=== PATIENT | male | born 1940 | race Caucasian/White ===

== ENCOUNTER 2018-10-13 16:41 | Inpatient (IN) | payer MEDICARE ==
[~2018-10-13] VITALS: Ht 180.3 cm; Wt 125.9 kg
[2018-10-13] MEDS ORDERED: ACETAMINOPHEN500 M1 PO (16:52)
[2018-10-13] MEDS ORDERED: LOW DOSE ASPIRI81 M1 PO (16:53)
[2018-10-13] MEDS ORDERED: LIPITOR80 MG PO (16:53)
[2018-10-13] MEDS ORDERED: SYMBICORT 16010.2 GM INH (16:54)
[2018-10-13] MEDS ORDERED: OPTIVE SENSITI1 EACH EACH EYE (16:54)
[2018-10-13] MEDS ORDERED: CALCIUM 500 +1 EAC3 PO (16:54)
[2018-10-13] MEDS ORDERED: DILTIAZEM 24HR120 M3 PO (16:55)
[2018-10-13] MEDS ORDERED: VITAMIN B-121000 MCG PO (16:55)
[2018-10-13] MEDS ORDERED: FUROSEMIDE20 MG PO (16:55)
[2018-10-13] MEDS ORDERED: LIDODERM 5 %1 PATCH TRANSDERM (16:56)
[2018-10-13] MEDS ORDERED: CLARITIN 10 MG10 MG PO (16:56)
[2018-10-13] MEDS ORDERED: ZESTRIL20 MG PO (16:56)
[2018-10-13] MEDS ORDERED: METHADONE5 MG PO (16:57)
[2018-10-13] MEDS ORDERED: ZANTAC300 MG PO (16:57)
[2018-10-13] MEDS ORDERED: GLUCOPHAGE1000 MG PO (16:57)
[2018-10-13] MEDS ORDERED: FLOMAX0.4 MG PO (16:58)
[2018-10-13] MEDS ORDERED: XARELTO20 MG PO (16:58)
[2018-10-13] MEDS ORDERED: CARAFATE1 G PO (16:58)
--- NOTE | 2018-10-13 17:14 | NUR ---
PT OUT OF THE ED AT THIS TIME, TRANSPORTED VIA STRETCHER WITH ED RNX2 FOR ORDERED TESTS.
--- NOTE | 2018-10-13 17:22 | NUR ---
UPON ARRIVED TO THE ED VIA EMS WITHOUT IV OR C-COLLAR IN PLACE. IV STARTED AND C-COLLAR APPLIED.
--- NOTE | 2018-10-13 17:24 | NUR ---
UPON ARRIVAL, SALINE SOAKED GAUZE APPLIED TO SKIN TEAR ON THE RUE. PRESSURE DRESSING APPLIED WITH OVIDIO WRAP OVER SALINE SOAKED GAUZE TO HELP CONTROL BLEEDING.
[2018-10-13 18:29] LABS: BASOPHILS 0.3 % (0-2); EOSINOPHILS 4.6 % (0-7); HEMATOCRIT 36.7 % (42.0-54.0); HEMOGLOBIN 11.9 g/dL (13.5-17.5); IMMATURE GRANULOCYTES 0.9 % (0-5); LYMPHOCYTES 10.6 % (15-50); MCH 27.2 pg (26.0-34.0); MCHC 32.4 g/dL (31.0-37.0); MEAN PLATELET VOLUME 9.2 fL (7.4-10.4); MONOCYTES 9.2 % (2-11); NEUTROPHILS 74.4 % (40-80); PLATELET COUNT 165 10x3/uL (130-400); RBC 4.37 10x6/uL (4.20-6.10); RDW 17.1 % (11.5-14.5); WBC 11.3 10x3/uL (4.8-10.8)
[2018-10-13 18:38] LABS: APTT 24.9 SECONDS (22.8-39.4); INR 1.22 (0.85-1.17); PROTIME 14.8 SECONDS (11.6-15.0)
[2018-10-13 18:45] LABS: ALBUMIN 2.9 g/dL (3.4-5.0); ANION GAP 10.5 mmol/L (8-16); BILIRUBIN - TOTAL 0.33 mg/dL (0.2-1.3); CALCIUM 9.2 mg/dL (8.5-10.1); CARBON DIOXIDE 28.7 mmol/L (21.0-32.0); CREATININE - SERUM 1.3 mg/dL (0.6-1.3); POTASSIUM - SERUM 4.2 mmol/L (3.5-5.1); PROTEIN - SERUM 6.6 g/dL (6.4-8.2)
--- NOTE | 2018-10-13 19:17 | NUR ---
VALERIY BANEGAS TOOK OVER PT AND REPORT CALLED TO VALERIY LAU ON FLOOR
--- NOTE | 2018-10-13 19:30 | MORECARE ---
CASE MANAGEMENT DISCHARGE SUMMARY PATIENT: FRANCES MISTRY UNIT: [id number] ADM DATE: 10/13/18 AGE: 78 : 39 SEX: M ROOM/BED: D.2118 AUTHOR: SHAMIR MCKEON PHYSICIAN: REFERRING PHYSICIAN: STEPHIE DELAROSA MD DATE OF SERVICE: 10/13/18 Discharge Plan Patient Name: FRANCES MISTRY Facility: [facility]:[place] : 1940 Planned Disposition: Home Anticipated Discharge Date: 10/16/18 Discharge Date: Expected LOS: 3 Initial Reviewer: [email or web address] Initial Review Date: 10/13/2018 Generated: 10/13/18 8:30 pm Comments DCP- Discharge Planning Updated by [email or web address]: Rachel Shah on 10/13/18 6:[address] Patient with VA benefits. Dr. Tubbs does not feel the patient is stable for transfer at this time. Documentation of this is in the ER report. CM contacted the [place] expeditor, , notified her of patient's admission to [facility] and medical instability. Rachel Shah RN, [facility] DCPIA - Discharge Planning Initial Assessment Updated by [email or web address]: Rachel Shah on 10/13/18 7:29 pm * Is the patient Alert and Oriented? Yes * PCP Dr. Stephens at the [place] * Pharmacy [facility] * Preadmission Environment Home Alone * ADLs Independent * Equipment Nebulizer Oxygen * Other Equipment Wears o2 most of the time. Has portability. May take off during the day some. [place] Is DME provider. * Verbal permission to speak to the caregivers and representatives has been obtained from the patient. Yes * Community resources currently utilized None * Additional services required to return to the preadmission environment? No * Can the patient safely return to the preadmission environment? Yes * Has this patient been hospitalized within the prior 30 days at any hospital? No Patient Name: FRANCES MISTRY Page 38575 at 1930 All edits/amendments must be made on the electronic document DICTATION DATE: 10/13/181929 WET PAN MIXER: THEODORE 10/13/181929 RPT#: [id number] DC DATE: STATUS: ADM IN [facility] [address] [place] [address] END OF REPORT
[2018-10-13 19:33] LABS: CKMB 1.5 U/L (0.0-3.6); CREATINE KINASE 50 UL (21-232)
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
--- NOTE | 2018-10-13 19:37 | NUR ---
TRAUMA BAND NUMBER [id number]
--- NOTE | 2018-10-13 22:36 | NUR ---
WHEN PATIENT ARRIVED TO FLOOR FROM ER, PATIENT WAS PLACED ON TELEMETRY. PATIENT RUNNING NORMAL SINUS WITH PAC.
[2018-10-14] VITALS (7 sets, daily range): BP systolic 101–132; BP diastolic 42–73; Ht 180.3 cm; Wt 125.9 kg
[2018-10-14 01:27] LABS: APPEARANCE CLEAR (CLEAR); BILIRUBIN NEGATIVE (NEGATIVE); COLOR YELLOW (YELLOW); GLUCOSE NEGATIVE (NEGATIVE); KETONE NEGATIVE (NEGATIVE); NITRITE NEGATIVE (NEGATIVE); PROTEIN NEGATIVE (NEGATIVE); SPECIFIC GRAVITY 1.015 (1.005-1.020); UROBILINOGEN NORMAL (NORMAL)
[2018-10-14 02:08] LABS: CKMB 1.9 U/L (0.0-3.6); CREATINE KINASE 69 UL (21-232)
[2018-10-14 02:09] LABS: TROPONIN-I 0.257 ng/mL (0.000-0.060)
[2018-10-14 08:27] LABS: BASOPHILS 0.5 % (0-2); EOSINOPHILS 6.4 % (0-7); HEMATOCRIT 34.6 % (42.0-54.0); HEMOGLOBIN 11.2 g/dL (13.5-17.5); IMMATURE GRANULOCYTES 0.7 % (0-5); LYMPHOCYTES 29.4 % (15-50); MCH 27.2 pg (26.0-34.0); MCHC 32.4 g/dL (31.0-37.0); PLATELET COUNT 151 10x3/uL (130-400); RBC 4.12 10x6/uL (4.20-6.10); RDW 17.6 % (11.5-14.5)
[2018-10-14 08:31] LABS: WBC 7.3 10x3/uL (4.8-10.8)
[2018-10-14 08:45] LABS: ALBUMIN 2.8 g/dL (3.4-5.0); ALKALINE PHOSPHATASE 90 U/L (46-116); ALT (SGPT) 30 U/L (10-68); BILIRUBIN - TOTAL 0.48 mg/dL (0.2-1.3); CALC OSMOLALITY 278 mosm/kg (275-300); CALCIUM 8.5 mg/dL (8.5-10.1); CARBON DIOXIDE 27.4 mmol/L (21.0-32.0); CHLORIDE - SERUM 103 mmol/L (98-107); CKMB 1.4 U/L (0.0-3.6); CREATINE KINASE 67 UL (21-232); CREATININE - SERUM 1.2 mg/dL (0.6-1.3); GLUCOSE 134 mg/dL (74-106); MAGNESIUM - SERUM 1.7 mg/dL (1.8-2.4); PHOSPHOROUS 3.5 mg/dL (2.5-4.9); POTASSIUM - SERUM 4.6 mmol/L (3.5-5.1); PRO BNP 327 pg/mL (0-450); PROTEIN - SERUM 6.1 g/dL (6.4-8.2); SODIUM 138 mmol/L (136-145); UREA NITROGEN 16 mg/dL (7-18); eGFR NON AFRICAN AMERICAN 62 mL/min (90-120)
[2018-10-14 08:46] LABS: TROPONIN-I 0.194 ng/mL (0.000-0.060)
--- NOTE | 2018-10-14 10:07 | NUR ---
BOLLUS GIVEN FOR BT PAIN. WILL CONT. TO MONITOR.
[2018-10-14 13:15] LABS: % SATURATION 14 % (15-55); IRON 36 ug/dl (35-150); TOTAL IRON BIND CAPACITY 241 ug/dl (260-445); UNSAT IRON BIND CAPACITY 205 ug/dl (150-375)
--- NOTE | 2018-10-14 13:23 | NUR ---
UP OOB TO AMBULATE WITH PT ASSIST.
[2018-10-14 13:54] LABS: T4 THYROXIN - FREE 1.14 ng/dL (0.76-1.46); THYROID STIMULATING HORMONE 1.05 uIU/mL (0.36-3.74)
--- NOTE | 2018-10-14 19:00 | NUR ---
BEDSIDE REPORT RECEIVED. PATIENT IS ALERT AND ORIENTED, RESPIRATIONS ARE EVEN AND UNLABORED. NO S/S OF DISTRESS. NO C/O PAIN. CALL LIGHT WITHIN REACH. WILL CPOC.
--- NOTE | 2018-10-14 19:00 | NUR ---
RECEIVING PATIENT CARE. PATIENT IS ALERT AND ORIENTED. RESTING COMFORTABLY IN BED. PATIENT IS ALERT AND ORIENTED. RESTING COMFORTABLY IN BED. NO S/S OF DISTRESS. NO C/O PAIN. CALL LIGHT WITHIN REACH. WILL CPOC.
[2018-10-15] VITALS: BP 106/44
[2018-10-15 03:13] LABS: UDS - AMPHET NEGATIVE QUAL (NEGATIVE); UDS - BARB NEGATIVE QUAL (NEGATIVE); UDS - BENZO NEGATIVE QUAL (NEGATIVE); UDS - COCAINE NEGATIVE QUAL (NEGATIVE); UDS - OPIATE POSITIVE QUAL (NEGATIVE); UDS - PCP NEGATIVE QUAL (NEGATIVE); UDS - THC NEGATIVE QUAL (NEGATIVE)
[2018-10-15 04:00] VITALS: BP 121/70
[2018-10-15 06:40] LABS: BASOPHILS 0.2 % (0-2); EOSINOPHILS 2.9 % (0-7); HEMATOCRIT 32.2 % (42.0-54.0); HEMOGLOBIN 10.5 g/dL (13.5-17.5); IMMATURE GRANULOCYTES 0.5 % (0-5); LYMPHOCYTES 11.3 % (15-50); MCH 27.2 pg (26.0-34.0); MCHC 32.6 g/dL (31.0-37.0); MCV 83.4 fL (80.0-100.0); MEAN PLATELET VOLUME 9.2 fL (7.4-10.4); MONOCYTES 10.7 % (2-11); NEUTROPHILS 74.4 % (40-80); PLATELET COUNT 157 10x3/uL (130-400); RBC 3.86 10x6/uL (4.20-6.10); RDW 17.6 % (11.5-14.5)
[2018-10-15 07:00] LABS: WBC 10.8 10x3/uL (4.8-10.8)
[2018-10-15 07:03] LABS: ANION GAP 11.2 mmol/L (8-16); CALCIUM 8.6 mg/dL (8.5-10.1); CARBON DIOXIDE 26.2 mmol/L (21.0-32.0); CREATININE - SERUM 1.3 mg/dL (0.6-1.3); POTASSIUM - SERUM 4.4 mmol/L (3.5-5.1)
--- NOTE | 2018-10-15 07:46 | NUR ---
PT PAINFUL THIS AM AND UNABLE TO DEEP BREATH OR COUGH DUE TO PAIN LEVEL SPOKE WITH NURSE ABOUT PAIN MEDS
[2018-10-15 09:55] VITALS: BP 104/66
--- NOTE | 2018-10-15 10:46 | NUR ---
PT TO OR AT THIS TIME NAD NOTED
--- NOTE | 2018-10-15 13:11 | NUR ---
PT BACK FROM OR HOLDING AWAITING TO GO BACK FOR SURGERY
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
[2018-10-15 17:41] VITALS: BP 113/53
[2018-10-15 20:00] VITALS: BP 129/61
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
--- NOTE | 2018-10-15 21:01 | NUR ---
BEDTIME MEDS AND REQUESTED PAIN MEDS GIVEN. CARDIZEM INFUSING. IV IRON UP AND INFUSING.
[2018-10-16] VITALS (7 sets, daily range): BP systolic 114–131; BP diastolic 38–68
--- NOTE | 2018-10-16 02:38 | NUR ---
C/O PAIN ALL OVER. DILAUDID 2MG SIVP GIVEN. REQUESTED JELLO/CRACKERS AND COFFEE PROVIDED. PT HAS YET TO SLEEP OR REST THIS SHIFT.
[2018-10-16 05:48] LABS: BASOPHILS 0.2 % (0-2); EOSINOPHILS 3.8 % (0-7); HEMATOCRIT 30.8 % (42.0-54.0); HEMOGLOBIN 9.9 g/dL (13.5-17.5); IMMATURE GRANULOCYTES 0.6 % (0-5); LYMPHOCYTES 14.3 % (15-50); MCH 27.1 pg (26.0-34.0); MCHC 32.1 g/dL (31.0-37.0); MCV 84.4 fL (80.0-100.0); MEAN PLATELET VOLUME 9.3 fL (7.4-10.4); MONOCYTES 13.2 % (2-11); NEUTROPHILS 67.9 % (40-80); PLATELET COUNT 170 10x3/uL (130-400); RBC 3.65 10x6/uL (4.20-6.10); RDW 17.5 % (11.5-14.5); WBC 9.4 10x3/uL (4.8-10.8)
[2018-10-16 06:34] LABS: ANION GAP 15.8 mmol/L (8-16); CALCIUM 8.3 mg/dL (8.5-10.1); CARBON DIOXIDE 22.5 mmol/L (21.0-32.0); CREATININE - SERUM 1.2 mg/dL (0.6-1.3); MAGNESIUM - SERUM 2.1 mg/dL (1.8-2.4); POTASSIUM - SERUM 4.3 mmol/L (3.5-5.1)
--- NOTE | 2018-10-16 07:15 | NUR ---
RECEIVED PT IN BED AAOX4 RESP UNLABORED DENIES ANY NEEDS C/O GENERALIZED PAIN 08/26
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
--- NOTE | 2018-10-16 10:47 | EC ---
PATIENT:FRANCES MISTRY DATE OF SERVICE: 10/13/18 SEX: M MEDICAL RECORD: [id number] DATE OF : 38 LOCATION:D.M2 D.211 AGE OF PATIENT: 78 ADMISSION DATE: 10/13/18 REFERRING PHYSICIAN: INTERPRETING PHYSICIAN: NEETA VO MD ECHOCARDIOGRAM REPORT ECHO CHARGES 4 ECHO COMPLETE Date: 10/14/18 CLINICAL DIAGNOSIS: CHEST TRAUMA/ELEVATED TROPONIN ECHOCARDIOGRAPHIC MEASUREMENTS (adult normal given) AC root (d.<3.7cm) 3.8 cm LV Septum d (<1.2 cm> 1.2 cm Valve Excursion 1.6 cm LV Septum (systole) 1.8 cm Left Atria (s.<4.0cm> 3.9 cm LVPW d(<1.2cm) 1.2 cm RV (d.<2.3cm) 2.9 cm LVPW (sytole) 1.7 cm LV diastole(<5.6CM) 5.6 cm MV E-F(>70mm/sec) cm LV systole 4.4 cm LVOT Diameter 2.1 cm MV exc.(>10mm) cm Est.ejection fraction (50-75%) % DOPPLER: LVIT cm/sec A 94.0 cm/sec E 67.0 cm/sec LA cm/sec RVSP 19.1 mmHg LVOT 96.0 cm/sec AOP1/2T m/s Asc. Ao 195 cm/sec RVOT 82.0 cm/sec RA cm/sec PA 100 cm/sec AV Gradient Peak 15.2 mmHg AV Mean 9.5 mmHg AV Area 1.5 cm MV Gradient Peak 5.3 mmHg MV Mean 1.9 mmHg MV Area cm COMMENTS: Environmental Programs Manager: Michelle GANDARAOE Hebrew Cantor: 1 Dr. Vo TAPE# PACS Pericardial Effusion N DATE OF SERVICE: 10/14/2018 PROCEDURE: Echocardiogram. FINDINGS: 1. Left ventricular chamber size is within normal limits. Left ventricular systolic function is normal at 50% to 55%. 2. Left atrium, right atrium, and right ventricular chamber sizes are within normal limits. 3. Valvular structures have normal structure and motion. ECHOCARDIOGRAM REPORT [id number] FRANCES MISTRY 4. Doppler interrogation reveals mild mitral regurgitation, no other valvular insufficiency or stenosis. 5. No evidence of pericardial effusion or left ventricular thrombus. TRANSINT:[id number] Voice Confirmation ID: [id number] DOCUMENT ID: [id number] NEETA VO MD at 1047 CC: [id number] DICTATION DATE: 10/14/18 1234 SPEEDER MACHINE OPERATOR: 10/14/[address] [facility] [address] [place] [address]
--- NOTE | 2018-10-16 10:49 | NUR ---
Nutrition Follow-up: Pt continues to report good PO intake but c/o constipation. States that he has not had a BM in 5-6 days and typically takes a stool softener at home. Diet: NPO Wt: 178# (possibly 278#; last wt 275#) Labs reviewed Meds reviewed Rec cardiac diabetic diet. Pt requesting stool softener. RD following.
--- NOTE | 2018-10-16 11:43 | NUR ---
FSBS 202 REGULAR INSULIN 4 UNITS GIVEN SQ ABD
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
--- NOTE | 2018-10-16 20:00 | NUR ---
INITIAL ROUNDS AND ASSESSMENT COMPLETED. PT SITTING ON SIDE OF BED. O2 @ 3L/NC WITH MILD SOB. IV VANCOMYCIN INFUSING TO RIGHT IJ CVL. CAF PER TELEMETRY. VOIDS TO URINAL. DRESSINGS IN PLACE TO RIGHT ARM/LEFT LEG AND TOP OF FOREHEAD. LEFT HAND OPEN TO AIR. RIGHT LEG OPEN TO AIR. NO NEEDS VOICED. MONITOR AND CPOC.
--- NOTE | 2018-10-16 20:15 | NUR ---
PT SENT TETRYL DISSOLVER OPERATOR TO TELL NURSE HE REALLY NEEDED SOMETHING FOR PAIN. MEDICATED WITH DILAUDID 4MG SIVP.
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
[2018-10-17 04:30] VITALS: BP 98/58
--- NOTE | 2018-10-17 04:57 | NUR ---
PT SENT BAR TURNER TO TELL NURSE HE NEEDED PAIN MEDICATION. UPON ENTERING ROOM TO GIVE PAIN MED, PT WAS SITTING ON THE SIDE OF THE BED AND NODDING OFF. ADMINISTERED IV DILAUDID AND ALSO GAVE AM ORAL MEDS + IV VANCOMYCIN UP AND INFUSING. SPOKE AT LENGTH WITH PT ON THE BENEFIT OF LYING IN THE BED TO ELEVATE HIS FEET WHICH HAVE INCREASED SWELLING FROM BEING DOWN ALL NIGHT. ALSO SPOKE WITH PATIENT ABOUT HIM NEEDING TO GET COMFORTABLE AND SLEEP/NAP/REST. AND NOT TO DO SO SITTING ON THE SIDE OF THE BED. PT THEN TOLD NURSE HE ALWAYS SLEEPS IN A RECLINER. MOVED RECLINER TO SIDE OF BED AND BAR TURNER AND NURSE ASSISTED PT TO GET INTO RECLINER/RECLINE AND ENCOURAGED TO TRY AND REST.
[2018-10-17 06:45] LABS: BASOPHILS 0.3 % (0-2); EOSINOPHILS 4.7 % (0-7); HEMOGLOBIN 9.4 g/dL (13.5-17.5); IMMATURE GRANULOCYTES 0.7 % (0-5); LYMPHOCYTES 14.2 % (15-50); MCH 27.1 pg (26.0-34.0); MCHC 32.4 g/dL (31.0-37.0); MCV 83.6 fL (80.0-100.0); MEAN PLATELET VOLUME 9.4 fL (7.4-10.4); MONOCYTES 13.8 % (2-11); NEUTROPHILS 66.3 % (40-80); PLATELET COUNT 138 10x3/uL (130-400); RBC 3.47 10x6/uL (4.20-6.10); RDW 17.4 % (11.5-14.5)
[2018-10-17 07:03] LABS: WBC 6.7 10x3/uL (4.8-10.8)
[2018-10-17 07:09] LABS: CALC OSMOLALITY 274 mosm/kg (275-300); CALCIUM 8.2 mg/dL (8.5-10.1); CARBON DIOXIDE 24.9 mmol/L (21.0-32.0); CHLORIDE - SERUM 103 mmol/L (98-107); GLUCOSE 161 mg/dL (74-106); MAGNESIUM - SERUM 2.2 mg/dL (1.8-2.4); POTASSIUM - SERUM 4.3 mmol/L (3.5-5.1); SODIUM 135 mmol/L (136-145); UREA NITROGEN 17 mg/dL (7-18); eGFR NON AFRICAN AMERICAN 76 mL/min (90-120)
[2018-10-17 09:02] VITALS: BP 129/64
--- NOTE | 2018-10-17 09:39 | NUR ---
UP AMBULATING HALLWAY WITH PT ASSIST.
[2018-10-17 11:09] VITALS: BP 118/63
--- NOTE | 2018-10-17 13:04 | NUR ---
DRSGS CHANGED TO RIGHT ARM, HAND AND LEFT LEG.
[2018-10-17 17:47] VITALS: BP 108/63
[2018-10-17 20:00] VITALS: BP 130/46
--- NOTE | 2018-10-17 20:00 | NUR ---
INITIAL ROUNDS AND ASSESSMENT COMPLETED. PT RESTING IN BEDSIDE RECLINER. ALERT/ORIENTED. O2 @ 3L/NC WITH NONLABORED RESPIRATIONS. DRESSINGS TO LEFT ARM AND RIGHT LOWER LEG C/D/I. FAMILY IN ROOM VISITING. UPDATE GIVEN WITH PT PERMISSION. QUESTIONS ABOUT WHY HIS IV DILAUDID WAS DISCONTINUED. EXPLAINED THAT PT HAD TO BE OFF IN ORDER TO GO HOME AND NEEDED TO BE TAKING ORAL PAIN MEDS. PT TAKES METHADONE AT HOME AND FAMILY STATES NORCO'S ARE NOT GOING TO BE ENOUGH FOR HIS PAIN. FAMILY PLANS TO TALK TO .
--- NOTE | 2018-10-17 23:00 | NUR ---
BEDTIME MEDS GIVEN. FSBS 166, 2UNITS SLIDING SCALE INSULIN GIVEN. PT AGREED TO RECLINE AND ELEVATE HIS EDEMATOUS FEET/LEGS. NORCO GIVEN FOR PAIN. MONITOR.
[2018-10-18] VITALS: BP 116/62
--- NOTE | 2018-10-18 03:28 | NUR ---
PT HAS BEEN DOZING IN HIS RECLINER, NOW AWAKE WITH C/O ALL OVER PAIN/DISCOMFORT. MEDICATED WITH NORCO ONE TAB. CALL LIGHT IN REACH. CPOC.
--- NOTE | 2018-10-18 03:29 | NUR ---
PT HAS ALSO BEEN SHOWING SIGNS OF SR WITH BIGEMINAL PACS WITH OCCASIONAL RUNS OF CAF. CPOC.
[2018-10-18 04:00] VITALS: BP 127/65
[2018-10-18 06:03] LABS: BASOPHILS 0.2 % (0-2); EOSINOPHILS 5.5 % (0-7); HEMATOCRIT 30.5 % (42.0-54.0); HEMOGLOBIN 9.9 g/dL (13.5-17.5); IMMATURE GRANULOCYTES 0.6 % (0-5); LYMPHOCYTES 14.7 % (15-50); MCHC 32.5 g/dL (31.0-37.0); MCV 83.3 fL (80.0-100.0); MEAN PLATELET VOLUME 9.2 fL (7.4-10.4); MONOCYTES 15.3 % (2-11); NEUTROPHILS 63.7 % (40-80); PLATELET COUNT 160 10x3/uL (130-400); RBC 3.66 10x6/uL (4.20-6.10); RDW 17.4 % (11.5-14.5); WBC 6.5 10x3/uL (4.8-10.8)
[2018-10-18 06:21] LABS: CALC OSMOLALITY 278 mosm/kg (275-300); CALCIUM 8.6 mg/dL (8.5-10.1); CARBON DIOXIDE 25.3 mmol/L (21.0-32.0); CHLORIDE - SERUM 105 mmol/L (98-107); CREATININE - SERUM 0.8 mg/dL (0.6-1.3); GLUCOSE 139 mg/dL (74-106); MAGNESIUM - SERUM 2.1 mg/dL (1.8-2.4); POTASSIUM - SERUM 4.6 mmol/L (3.5-5.1); SODIUM 138 mmol/L (136-145); UREA NITROGEN 14 mg/dL (7-18); VANCOMYCIN - TROUGH 13.2 ug/mL (10.0-20.0); eGFR NON AFRICAN AMERICAN > 90 mL/min (90-120)
[2018-10-18 08:00] VITALS: BP 108/57
--- NOTE | 2018-10-18 09:46 | NUR ---
TELEMETRY CAF. RESP UL ON 02 3L NC. UP AMBULATING HALLWAY WITH PT ASSIST. WILL CONT. PLAN OF CARE.
--- NOTE | 2018-10-18 12:03 | NUR ---
CONSENTS SIGNED FOR PACEMAKER. SHAVED AND PREPED FRON NIPPLE TO CHIN. HIBICLEANS BATH WITH RACING SECRETARY AND HANDICAPPER ASSIST.
[2018-10-18 12:30] VITALS: BP 158/64
[2018-10-18 16:30] VITALS: BP 106/53
[2018-10-18 20:00] VITALS: BP 128/62
--- NOTE | 2018-10-18 20:00 | NUR ---
INITIAL ROUNDS AND ASSESSMENT COMPLETED. PT RESTING IN BED SIDE RECLINER, CALL LIGHT IN REACH. IVF NS @ 50ML/HR INFUSING TO RIGHT IJ CVL. INSTRUCTED ON IMPORTANCE OF KEEPING FEET ELEVATED DUE TO SWELLING. PT'S DRESSING TO RIGHT ARM HAS FALLEN OFF. NEW DRESSING APPLIED RIGHT ARM. DRESSING TO LEFT LEG C/D/I. NO DRESSINGS IN PLACE TO LEFT HAND AND RIGHT SIDE OF HEAD, ALSO RIGHT LEG OPEN TO AIR. PT ALERT/ORIENTED AND REQUESTING PAIN MED WHEN IT IS TIME.
[2018-10-19] VITALS: BP 124/77
[2018-10-19 05:32] LABS: BASOPHILS 0.5 % (0-2); EOSINOPHILS 4.9 % (0-7); HEMATOCRIT 29.3 % (42.0-54.0); HEMOGLOBIN 9.2 g/dL (13.5-17.5); IMMATURE GRANULOCYTES 0.7 % (0-5); LYMPHOCYTES 20.3 % (15-50); MCH 26.4 pg (26.0-34.0); MCHC 31.4 g/dL (31.0-37.0); MEAN PLATELET VOLUME 9.4 fL (7.4-10.4); MONOCYTES 14.5 % (2-11); NEUTROPHILS 59.1 % (40-80); PLATELET COUNT 180 10x3/uL (130-400); RBC 3.49 10x6/uL (4.20-6.10); RDW 17.4 % (11.5-14.5); WBC 5.9 10x3/uL (4.8-10.8)
[2018-10-19 05:54] LABS: CALC OSMOLALITY 279 mosm/kg (275-300); CALCIUM 8.9 mg/dL (8.5-10.1); CARBON DIOXIDE 26.5 mmol/L (21.0-32.0); CHLORIDE - SERUM 105 mmol/L (98-107); CREATININE - SERUM 0.9 mg/dL (0.6-1.3); GLUCOSE 147 mg/dL (74-106); MAGNESIUM - SERUM 1.9 mg/dL (1.8-2.4); POTASSIUM - SERUM 4.2 mmol/L (3.5-5.1); SODIUM 139 mmol/L (136-145); UREA NITROGEN 11 mg/dL (7-18); eGFR NON AFRICAN AMERICAN 86 mL/min (90-120)
[2018-10-19 06:25] VITALS: BP 135/54
--- NOTE | 2018-10-19 08:07 | NUR ---
ASSESSMENT DONE. EMERY NEEDS
[2018-10-19 08:43] VITALS: BP 132/59
[2018-10-19 13:28] VITALS: BP 107/56
--- NOTE | 2018-10-19 17:06 | NUR ---
WITHOUT CHANGES OR DISTRESS NOTED AT THIS TIME. DENIES NEEDS
[2018-10-19 17:15] VITALS: BP 147/51
--- NOTE | 2018-10-19 17:20 | NUR ---
I have reviewed this patient and I concur with the Shift Assessment completed by the Licensed Practical Nurse today this shift.
--- NOTE | 2018-10-19 19:35 | NUR ---
BEDSIDE REPORT RECEIVED. PATIENT IS ALERT AND ORIENTED, RESTING COMFORTABLY IN CHAIR. RESPIRATIONS ARE EVEN AND UNLABORED. NO S/S OF DISTRESS. NO C/O PAIN. CALL LIGHT WITHIN REACH. NEEDS MET. WILL CPOC.
[2018-10-19 20:00] VITALS: BP 147/1
[2018-10-20 00:01] VITALS: BP 138/64
--- NOTE | 2018-10-20 03:02 | NUR ---
COMPLAINTS OF PAIN NOTED, HYDROCODONE GIVEN PER ORDERS. WILL NOTE ANY CHANGE.
[2018-10-20 04:00] VITALS: BP 130/50
[2018-10-20 06:41] LABS: ALBUMIN 2.6 g/dL (3.4-5.0); ALKALINE PHOSPHATASE 73 U/L (46-116); ALT (SGPT) 17 U/L (10-68); BILIRUBIN - TOTAL 0.45 mg/dL (0.2-1.3); CALC OSMOLALITY 282 mosm/kg (275-300); CALCIUM 9.2 mg/dL (8.5-10.1); CHLORIDE - SERUM 105 mmol/L (98-107); CREATININE - SERUM 0.9 mg/dL (0.6-1.3); GLUCOSE 133 mg/dL (74-106); POTASSIUM - SERUM 4.4 mmol/L (3.5-5.1); PROTEIN - SERUM 5.9 g/dL (6.4-8.2); SODIUM 141 mmol/L (136-145); UREA NITROGEN 13 mg/dL (7-18); eGFR NON AFRICAN AMERICAN 86 mL/min (90-120)
[2018-10-20 06:51] LABS: BASOPHILS 0.4 % (0-2); EOSINOPHILS 4.5 % (0-7); HEMATOCRIT 30.6 % (42.0-54.0); HEMOGLOBIN 9.9 g/dL (13.5-17.5); IMMATURE GRANULOCYTES 1.2 % (0-5); MCH 27.2 pg (26.0-34.0); MCHC 32.4 g/dL (31.0-37.0); MCV 84.1 fL (80.0-100.0); MEAN PLATELET VOLUME 9.1 fL (7.4-10.4); MONOCYTES 12.8 % (2-11); NEUTROPHILS 61.1 % (40-80); RBC 3.64 10x6/uL (4.20-6.10); RDW 17.3 % (11.5-14.5); WBC 6.9 10x3/uL (4.8-10.8)
[2018-10-20 07:09] LABS: PLATELET COUNT 221 10x3/uL (130-400)
--- NOTE | 2018-10-20 07:25 | NUR ---
ASSESSMENT DONE. DENIES NEEDS
[2018-10-20 08:00] VITALS: BP 146/63
[2018-10-20 12:00] VITALS: BP 136/69
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
[2018-10-20 15:04] VITALS: BP 123/47
--- NOTE | 2018-10-20 18:00 | NUR ---
I have reviewed this patient and I concur with the Shift Assessment completed by the Licensed Practical Nurse today this shift.
--- NOTE | 2018-10-20 18:29 | NUR ---
WITHOUT CHANGES OR DISTRESS NOTED AT THIS TIME.
[2018-10-20 20:00] VITALS: BP 143/70
[2018-10-21 00:41] VITALS: BP 137/71
[2018-10-21 04:00] VITALS: BP 155/56
[2018-10-21 05:27] LABS: BASOPHILS 0.5 % (0-2); EOSINOPHILS 4.6 % (0-7); HEMATOCRIT 29.9 % (42.0-54.0); HEMOGLOBIN 9.6 g/dL (13.5-17.5); IMMATURE GRANULOCYTES 0.8 % (0-5); LYMPHOCYTES 20.4 % (15-50); MCH 26.9 pg (26.0-34.0); MCHC 32.1 g/dL (31.0-37.0); MCV 83.8 fL (80.0-100.0); MEAN PLATELET VOLUME 8.8 fL (7.4-10.4); MONOCYTES 13.1 % (2-11); NEUTROPHILS 60.6 % (40-80); PLATELET COUNT 195 10x3/uL (130-400); RBC 3.57 10x6/uL (4.20-6.10); RDW 17.2 % (11.5-14.5); WBC 7.4 10x3/uL (4.8-10.8)
[2018-10-21 06:03] LABS: ALBUMIN 2.4 g/dL (3.4-5.0); ALKALINE PHOSPHATASE 71 U/L (46-116); ALT (SGPT) 18 U/L (10-68); BILIRUBIN - TOTAL 0.34 mg/dL (0.2-1.3); CALC OSMOLALITY 280 mosm/kg (275-300); CALCIUM 8.8 mg/dL (8.5-10.1); CARBON DIOXIDE 27.3 mmol/L (21.0-32.0); CHLORIDE - SERUM 106 mmol/L (98-107); GLUCOSE 129 mg/dL (74-106); POTASSIUM - SERUM 4.2 mmol/L (3.5-5.1); PROTEIN - SERUM 6.1 g/dL (6.4-8.2); SODIUM 140 mmol/L (136-145); UREA NITROGEN 13 mg/dL (7-18); VANCOMYCIN - TROUGH 20.2 ug/mL (10.0-20.0); eGFR NON AFRICAN AMERICAN 76 mL/min (90-120)
[2018-10-21 08:20] VITALS: BP 152/70
--- NOTE | 2018-10-21 09:27 | NUR ---
ASSESSMENT DONE. DENIES NEEDS
--- NOTE | 2018-10-21 10:22 | NUR ---
I have reviewed this patient and I concur with the Shift Assessment completed by the Licensed Practical Nurse today this shift.
[2018-10-21 11:38] VITALS: BP 137/50
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
[2018-10-21 14:03] VITALS: BP 137/67
--- NOTE | 2018-10-21 18:03 | NUR ---
WITHOUT CHANGES OR DISTRESS NOTED AT THIS TIME. DENIES NEEDS
--- NOTE | 2018-10-21 19:25 | NUR ---
BEDSIDE REPORT RECEIVED. PATIENT IS AAO X 4. RESPIRATIONS ARE EVEN AND UNLABORED. NO S/S OF DISTRESS. NO C/O PAIN. CALL LIGHT WITHIN REACH. WILL CPOC.
[2018-10-21 20:00] VITALS: BP 138/67
[2018-10-22] VITALS: BP 140/55
[2018-10-22 04:00] VITALS: BP 139/61
[2018-10-22 06:37] LABS: BASOPHILS 0.5 % (0-2); EOSINOPHILS 4.1 % (0-7); HEMATOCRIT 30.6 % (42.0-54.0); HEMOGLOBIN 9.8 g/dL (13.5-17.5); IMMATURE GRANULOCYTES 1.1 % (0-5); LYMPHOCYTES 25.3 % (15-50); MCH 26.8 pg (26.0-34.0); MCV 83.8 fL (80.0-100.0); MONOCYTES 12.5 % (2-11); NEUTROPHILS 56.5 % (40-80); PLATELET COUNT 222 10x3/uL (130-400); RBC 3.65 10x6/uL (4.20-6.10); RDW 17.3 % (11.5-14.5); WBC 6.7 10x3/uL (4.8-10.8)
[2018-10-22 07:20] LABS: ALBUMIN 2.5 g/dL (3.4-5.0); ALKALINE PHOSPHATASE 79 U/L (46-116); ALT (SGPT) 22 U/L (10-68); BILIRUBIN - TOTAL 0.44 mg/dL (0.2-1.3); CALC OSMOLALITY 279 mosm/kg (275-300); CALCIUM 9.2 mg/dL (8.5-10.1); CARBON DIOXIDE 29.1 mmol/L (21.0-32.0); CHLORIDE - SERUM 104 mmol/L (98-107); GLUCOSE 111 mg/dL (74-106); POTASSIUM - SERUM 4.1 mmol/L (3.5-5.1); PROTEIN - SERUM 6.3 g/dL (6.4-8.2); SODIUM 140 mmol/L (136-145); UREA NITROGEN 12 mg/dL (7-18); eGFR NON AFRICAN AMERICAN 76 mL/min (90-120)
[2018-10-22 09:43] VITALS: BP 134/54
[2018-10-22 12:08] VITALS: BP 120/80
--- NOTE | 2018-10-22 12:26 | NUR ---
PATIENT STATES THAT HE WANTS ME TO CALL HIS KEFLEX TO [facility]. I TOLD HIM THAT I COULD NOT CALL THE SUNNY SIDE IN. HE ALSO STATES THAT HE HAD TWO OXYGEN TANKS WITH HIM, BLACK WITH SILVER TOPS. ONE EMPTY AND ONE FULL. THESE ARE NOT IN THE ROOM WITH HIM. I CALLED MARCI IN THE ED FOR HER TO LOOK FOR THEM PATIENT STATES HE WEARS OXYGEN AT 2L PER [place] AT ALL TIMES. SHE IS TO CALL ME BACK.
--- NOTE | 2018-10-22 13:31 | NUR ---
DRSGS CHANGED TO RIGHT ARM AND LEFT LEG. WILL CONT. PLAN OF CARE.
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
--- NOTE | 2018-10-22 13:40 | NUR ---
MARCI FROM THE ED TO CALL US BACK AND TELL US THE [employer] DID NOT BRING HIM IN.
--- NOTE | 2018-10-22 14:12 | NUR ---
KEFLEX 500 MG # 14 CALLED TO [facility]. BID DOSE. I TALKED TO EL-PHARMACIST.
[2018-10-22] MEDS ORDERED: KEFLEX500 MG PO (14:25)
[2018-10-22] MEDS ORDERED: HYDROCODON-ACE1 EAC7 PO (14:26)
--- NOTE | 2018-10-22 16:20 | NUR ---
CVL AND TELEMETRY DCD. DC PLANS GIVEN. UNDERSTANDING VOICED. ESCORTED TO CAR BY W/C.
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
== END 2018-10-22 16:21 | disposition home or self-care (01) | DRG 570 ==
LOC: D.ER 16:41 → D.M2 19:02
PROVIDERS: Family Medicine; Family Medicine Adult Medicine; Surgery; ADMIT Internal Medicine Nephrology; ATTEND Internal Medicine Nephrology
PROC: 0JBJ0ZZ Excision of Right Hand Subcutaneous Tissue and Fascia, Open Approach (ICD-10-PCS; 2018-10-15)
PROC: 0JBG0ZZ Excision of Right Lower Arm Subcutaneous Tissue and Fascia, Open Approach (ICD-10-PCS; 2018-10-15)
PROC: 0JB00ZZ Excision of Scalp Subcutaneous Tissue and Fascia, Open Approach (ICD-10-PCS; 2018-10-15)
PROC: 0HC0XZZ Extirpation of Matter from Scalp Skin, External Approach (ICD-10-PCS; 2018-10-15)
PROC: 0JBD0ZZ Excision of Right Upper Arm Subcutaneous Tissue and Fascia, Open Approach (ICD-10-PCS; principal; 2018-10-15 08:30)
DX: S01.02XA Laceration with foreign body of scalp, initial encounter (principal); J96.21 Acute and chronic respiratory failure with hypoxia; J18.9 Pneumonia, unspecified organism; S22.31XA Fracture of one rib, right side, initial encounter for closed fracture; N17.9 Acute kidney failure, unspecified; J98.11 Atelectasis; I48.91 Unspecified atrial fibrillation; S60.512A Abrasion of left hand, initial encounter; S40.811A Abrasion of right upper arm, initial encounter; S80.812A Abrasion, left lower leg, initial encounter; S80.811A Abrasion, right lower leg, initial encounter; V49.9XXA Car occupant (driver) (passenger) injured in unspecified traffic accident, initial encounter; D64.9 Anemia, unspecified; E11.9 Type 2 diabetes mellitus without complications; J44.9 Chronic obstructive pulmonary disease, unspecified; K21.9 Gastro-esophageal reflux disease without esophagitis; N40.0 Benign prostatic hyperplasia without lower urinary tract symptoms; S41.122A Laceration with foreign body of left upper arm, initial encounter; S41.121A Laceration with foreign body of right upper arm, initial encounter; S81.812A Laceration without foreign body, left lower leg, initial encounter; S81.811A Laceration without foreign body, right lower leg, initial encounter